=== PATIENT | female | born 1975 | race Two or more races ===

== ENCOUNTER → 2017-04-16 | Outpatient (CLI) | payer OTHER ==
--- NOTE | 2017-04-27 09:10 | REPMRS ---
Patient History The patient states she had a clinical breast exam in March 2017. Patient had first child at age 35. Family history of lung cancer in mother at age 60 and colorectal cancer in maternal grandmother at age 68. Digital Mammo Screening Bilat: April 16, 2017 - Exam #: [id number] Bilateral CC and MLO view(s) were taken. Technologist: Natacha Ortiz, Technologist Prior study comparison: February 2016, digital bilateral screening mammo, [facility]. FINDINGS: There are scattered fibroglandular densities. There has been no change in the appearance of the mammogram from the prior studies. There is a mild amount of residual fibroglandular tissue which is fairly symmetric. There is no interval development of dominant mass, architectural distortion, or clustered microcalcification suggestive of malignancy. ASSESSMENT: BI-RADS/ACR category 1 mammogram. Negative. Recommendation Routine screening mammogram in 1 year (for women over age 40). This mammogram was interpreted with the aid of an FDA-approved computer-aided dectection system. Electronically Signed By: Bacilio Vicente MD 04/27/17 0994
== END ==
LOC: M RAD 09:16
PROVIDERS: ATTEND Family Medicine
DX: Z12.31 Encounter for screening mammogram for malignant neoplasm of breast (principal)

== ENCOUNTER → 2017-10-15 | Outpatient (REF) | payer OTHER ==
[2017-10-15 13:58] LABS: TOTAL PROTEIN,RANDOM URINE 7.2 MG/DL (0.0-12.0)
[2017-10-15 17:59] LABS: FREE T4 0.89 NG/DL (0.76-1.46)
== END ==
LOC: M LAB REF 13:14
DX: E11.9 Type 2 diabetes mellitus without complications (principal); R80.9 Proteinuria, unspecified

== ENCOUNTER → 2017-10-25 | Outpatient (CLI) | payer OTHER | LOC: M RAD 09:07 | DX: I15.0 Renovascular hypertension (principal) ==

== ENCOUNTER → 2018-01-24 | Outpatient (REF) | payer OTHER ==
[2018-01-24 13:36] LABS: TOTAL PROTEIN,RANDOM URINE 19.7 MG/DL (0.0-12.0)
== END ==
LOC: M LAB REF 12:46
DX: E11.9 Type 2 diabetes mellitus without complications (principal); R80.9 Proteinuria, unspecified

== ENCOUNTER → 2018-01-24 | Outpatient (REF) | payer OTHER ==
[2018-01-24 14:06] LABS: HEPATITIS B SURFACE ANTIGEN NEGATIVE (NEGATIVE)
[2018-01-24 15:58] LABS: COMPLEMENT C3 141 MG/DL (90-180)
[2018-01-24 15:58] LABS: COMPLEMENT C4 21.1 MG/DL (10-40)
[2018-01-27 00:07] LABS: ANCA-ATYPICAL <1:20 titer (Neg:<1:20); ANTI DOUBLE STRAND-DNA AB <1 IU/mL (0-9); ANTINUCLEAR ANTIBODIES DIRECT Negative (Negative); CYTOPLASMIC NEUTROP AB ANCA-C <1:20 titer (Neg:<1:20); PERINUCLEAR AB ANCA-P <1:20 titer (Neg:<1:20)
== END ==
LOC: M LAB REF 13:05
DX: R80.9 Proteinuria, unspecified (principal)

== ENCOUNTER → 2018-04-21 | Outpatient (CLI) | payer OTHER | LOC: M RAD 12:52 | DX: Z12.31 Encounter for screening mammogram for malignant neoplasm of breast (principal) | CPT/HCPCS: 77067 ==

== ENCOUNTER → 2018-07-26 | Outpatient (REF) | payer OTHER ==
[2018-07-26 18:08] LABS: FREE T4 0.8 NG/DL (0.76-1.46); THYROID STIMULATING HORMONE 1.69 uIU/ML (0.358-3.740)
== END ==
LOC: M LAB REF 16:59
PROVIDERS: ATTEND Internal Medicine Nephrology
DX: R00.0 Tachycardia, unspecified (principal)